=== PATIENT | female | born 1980 | race African-American/Black ===

== ENCOUNTER → 2016-11-28 03:04 | Emergency (ER) | payer OTHER ==
[2015-08-21 23:30] VITALS: BP 149/80
== END | disposition left against medical advice (07) ==
LOC: ER 03:04
DX: J02.9 Acute pharyngitis, unspecified (principal); Z53.21 Procedure and treatment not carried out due to patient leaving prior to being seen by health care provider

== ENCOUNTER 2016-12-10 18:12 | Emergency (ER) | payer OTHER ==
[~2016-12-10] VITALS: Ht 160 cm; Wt 68.0 kg
[2016-12-10 18:36] VITALS: BP 134/85
[2016-12-10] MEDS ORDERED: IV NORMAL SALINE 1000ML BAG 1,000 ML IV ONE (19:00)
--- NOTE | 2016-12-10 20:51 | PHYS DOC ---
Past Medical History Past Medical History: Asthma, Other Additional Past Medical Histor: drug abuse(PCP) Past Surgical History: Alcohol Use: Rarely Drug Use: Phencyclidine Social History Narrative: last "smoked PCP today" Adult General Chief Complaint Chief Complaint: PSYCH EVALUATION [facility] HPI Patient is a 36 year old female presenting to the emergency department for evaluation of multiple complaints including doing PCP not feeling well, she wants me to sign her disability paperwork and she wants to harm herself as it is stressful taking care of her mother at home. Patient says she has never tried herself before in the past she has no plan on how she would hurt herself currently. He is denying any specific medical complaints including pain fevers shortness of breath. Patient is refusing to give urine or blood work but wants to have a psych screening. Review of Systems Review of Systems Constitutional: Denies fever or chills [] Respiratory: Denies cough or shortness of breath [] Cardiovascular: No additional information not addressed in HPI [] GI: Denies abdominal pain, nausea, vomiting, bloody stools or diarrhea [] Neurologic: Denies headache, focal weakness or sensory changes [] Current Medications Current Medications Current Medications Medications (Trade) Dose Ordered Sig/Sixto Start Time Stop Time Status Last Admin Dose Admin Sodium Chloride 1,000 ml @ 1,000 mls/hr 1X ONCE 12/10/16 19:00 12/10/16 19:59 CA Allergies Allergies Allergies Coded Allergies Type Severity Reaction Last Updated Verified No Known Drug Allergies 12/10/16 No Physical Exam Physical Exam Constitutional: Well developed, well nourished, no acute distress, non-toxic appearance. [] Cardiovascular:Heart rate regular rhythm, no murmur [] Lungs & Thorax: Bilateral breath sounds clear to auscultation [] Abdomen: Bowel sounds normal, soft, no tenderness, no masses, no pulsatile masses. [] Skin: Warm, dry, no erythema, no rash. [] Back: No tenderness, no CVA tenderness. [] Extremities: No tenderness, no cyanosis, no clubbing, ROM intact, no edema. [] Neurologic: Alert and oriented X 3, normal motor function, normal sensory function, no focal deficits noted. [] Psychologic: Affect normal, judgement normal, mood normal. [] Current Patient Data Vital Signs Vital Signs Date Time Temp Pulse Resp B/P (MAP) Pulse Ox O2 Delivery O2 Flow Rate FiO2 12/10/16 18:36 98.7 106 20 134/85 (101) 97 Room Air 98.7 EKG EKG [] Radiology/Procedures Radiology/Procedures [] Course & Med Decision Making Course & Med Decision Making PACT team saw the patient and screened her from a psychiatric standpoint and she is cleared. Medically cleared from my standpoint so will discharged in stable condition. Patient did not want to wait for discharge instructions and walked out of the emergency department under her own power. Dragon Disclaimer Dragon Disclaimer This electronic medical record was generated, in whole or in part, using a voice recognition dictation system. Departure Departure Impression: Primary Impression: Suicidal ideations Additional Impression: Drug abuse Disposition: 01 HOME, SELF-CARE Condition: GOOD Referrals: ROLAND ANTON (PCP) Problem Qualifiers LAYNE CRESPO DO Dec 10, 2016 20:51
== END 2016-12-10 20:40 | disposition home or self-care (01) ==
LOC: ER 18:12
DX: R45.851 Suicidal ideations (principal); F16.10 Hallucinogen abuse, uncomplicated; J45.909 Unspecified asthma, uncomplicated
CPT/HCPCS: 99284

== ENCOUNTER 2017-02-09 17:30 | Emergency (ER) | payer OTHER ==
[~2017-02-09] VITALS: Ht 160 cm; Wt 75.9 kg
[2017-02-09 17:43] VITALS: BP 158/62
--- NOTE | 2017-02-09 18:04 | PHYS DOC ---
Past Medical History Past Medical History: Asthma, Other Additional Past Medical Histor: drug abuse(PCP) Past Surgical History: Alcohol Use: None Additional Information: DENIES ALCOHOL 02/09 Drug Use: None Social History Narrative: DENIES DRUG USE 02/09 Adult General Chief Complaint Chief Complaint: Congestion HPI HPI Patient is a 36 year old female presents to the emergency department stating that she's had a nonproductive cough for the last 2 weeks. Patient states that she has had a sore throat with the cough. She does state she has a history of asthma and has used her albuterol inhaler with minimal relief. She states that she does have some chest discomfort with coughing. Patient denies fever, chills she does state she has night sweats. She does have a history of smoking. Review of Systems Review of Systems Constitutional: Denies fever or chills [] Eyes: Denies change in visual acuity, redness, or eye pain [] HENT: Denies nasal congestion or sore throat [] Respiratory: cough denies shortness of breath [] Cardiovascular: No additional information not addressed in HPI [] GI: Denies abdominal pain, nausea, vomiting, bloody stools or diarrhea [] : Denies dysuria or hematuria [] Musculoskeletal: Denies back pain or joint pain [] Integument: Denies rash or skin lesions [] Neurologic: Denies headache, focal weakness or sensory changes [] Endocrine: Denies polyuria or polydipsia [] Current Medications Current Medications Current Medications Medications (Trade) Dose Ordered Sig/[facility] Start Time Stop Time Status Last Admin Dose Admin Albuterol/ Ipratropium (Duoneb) 3 ml 1X ONCE 02/09/17 18:15 02/09/17 18:16 DC 02/09/17 18:20 3 ML Prednisone (Prednisone) 40 mg 1X ONCE 02/09/17 18:15 02/09/17 18:16 DC 02/09/17 18:09 40 MG Allergies Allergies Allergies Coded Allergies Type Severity Reaction Last Updated Verified No Known Drug Allergies 12/10/16 No Physical Exam Physical Exam Constitutional: Well developed, well nourished, no acute distress, non-toxic appearance. [] HENT: Normocephalic, atraumatic, bilateral external ears normal, oropharynx moist, no oral exudates, nose normal. Bilateral tympanic membranes appear to be normal. Throat without redness no erythematous no exudate noted. Eyes: PERRLA, EOMI, conjunctiva normal, no discharge. [] Neck: Normal range of motion, no tenderness, supple, no stridor. [] Cardiovascular:Heart rate regular rhythm, no murmur [] Lungs & Thorax: Bilateral breath sounds clear to auscultation. Patient was noted to have a nonproductive cough. Back: No tenderness Extremities: No tenderness, no cyanosis, no clubbing, ROM intact, no edema. [] Neurologic: Alert and oriented X 3, normal motor function, normal sensory function, no focal deficits noted. [] Psychologic: Affect normal, judgement normal, mood normal. [] Current Patient Data Vital Signs Vital Signs Date Time Temp Pulse Resp B/P (MAP) Pulse Ox O2 Delivery O2 Flow Rate FiO2 02/09/17 18:23 97 Room Air 02/09/17 17:43 98.6 108 18 98.6 EKG EKG [] Radiology/Procedures Radiology/Procedures [] Course & Med Decision Making Course & Med Decision Making Pertinent Labs and Imaging studies reviewed. (See chart for details) Patient was provided with a DuoNeb treatment here in the emergency department as well as prednisone. Patient states she is feeling much better the treatment. She'll be discharged home with prednisone with recommendations to use her albuterol at home as needed. She'll be provided with Zithromax. Patient was provided with discharge instructions, treatment regimens and follow-up recommendations. Patient agrees with the treatment plan at this time. Patient was provided with recommendations to follow-up with her primary care physician in the next week. All questions and concerns were answered patient's bedside. [] Dragon Disclaimer Dragon Disclaimer This electronic medical record was generated, in whole or in part, using a voice recognition dictation system. Departure Departure Impression: Primary Impression: Bronchitis Disposition: 01 HOME, SELF-CARE Condition: STABLE Referrals: ROLAND ANTON (PCP) Patient Instructions: Bronchitis, [id number] Additional Instructions: Activity as tolerated. Medications as prescribed. Continue to use your albuterol inhaler as needed. Stop smoking. Follow-up primary care physician in the next week. Return back to emergency prior signs symptoms of become worse. Scripts Azithromycin (ZITHROMAX) 250 Mg Tablet 250 MG PO DAILY for ANTI-BIOTIC, #6 TAB 0 Refills Take 2 tablets today then 1 tablet daily until gone Prov: SYLVESTER LIGHT APRN 02/09/17 Prednisone (PREDNISONE) 20 Mg Tablet 40 MG PO DAILY, #14 TAB Prov: SYLVESTER LIGHT APRN 02/09/17 SYLVESTER LIGHT APRN Feb 09, 2017 18:04
[2017-02-09] MEDS ORDERED: predniSONE 20 MG TABLET PO ONE (18:15)
[2017-02-09] MEDS ORDERED: IPRATRPIUM/ALBUTEROL 0.5/2.5MG 3 ML NEBU. NEB ONE (18:15)
[2017-02-09] MEDS ORDERED: AZIT250T PO (18:39)
[2017-02-09] MEDS ORDERED: PRED20TA PO (18:39)
== END 2017-02-09 18:44 | disposition home or self-care (01) ==
LOC: ER 17:30
DX: J40 Bronchitis, not specified as acute or chronic (principal); Z87.891 Personal history of nicotine dependence; J45.909 Unspecified asthma, uncomplicated; F16.10 Hallucinogen abuse, uncomplicated
CPT/HCPCS: 94250; 94640; 99283; J7512; J7620

== ENCOUNTER 2018-03-06 12:27 | Emergency (ER) | payer OTHER ==
[~2018-03-06] VITALS: Ht 160 cm; Wt 91.2 kg
[~2018-03-06 12:27] MED LIST: AZIT250T PO; PRED20TA PO
--- NOTE | 2018-03-06 12:49 | PHYS DOC ---
Past Medical History Past Medical History: Asthma, Other Additional Past Medical Histor: drug abuse(PCP) Past Surgical History: Alcohol Use: None Drug Use: None Adult General Chief Complaint Chief Complaint: COUGH HPI HPI Patient is a 37 year old female who presented to ER today for evaluation of productive cough for the last 2 weeks. Patient denies any chest pain, no fever. Patient is a smoker. Patient denies any abdominal pain, no nausea vomiting. She denies any trouble breathing, no recent travel or operation. Review of Systems Review of Systems Constitutional: Denies fever or chills [] Eyes: Denies change in visual acuity, redness, or eye pain [] HENT: Denies nasal congestion or sore throat [] Respiratory: Positive for cough, NO Shortness of breath [] Cardiovascular: No additional information not addressed in HPI [] GI: Denies abdominal pain, nausea, vomiting, bloody stools or diarrhea [] : Denies dysuria or hematuria [] Musculoskeletal: Denies back pain or joint pain [] Integument: Denies rash or skin lesions [] Neurologic: Denies headache, focal weakness or sensory changes [] Endocrine: Denies polyuria or polydipsia [] All other systems were reviewed and found to be within normal limits, except as documented in this note. Allergies Allergies Allergies Coded Allergies Type Severity Reaction Last Updated Verified No Known Drug Allergies 12/10/16 No Physical Exam Physical Exam Constitutional: Well developed, well nourished, no acute distress, non-toxic appearance. [] HENT: Normocephalic, atraumatic, bilateral external ears normal, oropharynx moist, no oral exudates, nose normal. [] Eyes: PERRLA, EOMI, conjunctiva normal, no discharge. [] Neck: Normal range of motion, no tenderness, supple, no stridor. [] Cardiovascular:Heart rate regular rhythm, no murmur [] Lungs & Thorax: Bilateral breath sounds clear to auscultation [] Abdomen: Bowel sounds normal, soft, no tenderness, no masses, no pulsatile masses. [] Skin: Warm, dry, no erythema, no rash. [] Back: No tenderness, no CVA tenderness. [] Extremities: No tenderness, no cyanosis, no clubbing, ROM intact, no edema. [] Neurologic: Alert and oriented X 3, normal motor function, normal sensory function, no focal deficits noted. [] Psychologic: Affect normal, judgement normal, mood normal. [] Current Patient Data Vital Signs Vital Signs Date Time Temp Pulse Resp B/P (MAP) Pulse Ox O2 Delivery O2 Flow Rate FiO2 03/06/18 14:35 74 16 120/73 (89) 97 Room Air 03/06/18 12:35 99.3 99.3 EKG EKG [] Radiology/Procedures Radiology/Procedures [][facility] [address] [place] [address] IMAGING REPORT Signed PATIENT: JOLYNN WINSTON ACCOUNT: [id number] : 1980 LOCATION: ER AGE: 37 SEX: F EXAM STATUS: REG ER ORD. PHYSICIAN: LISA SANDERSON DO REASON: COUGH FOR 2 WEEKS PROCEDURE: CHEST PA & LATERAL EXAM: CHEST PA LATERAL DATE: 03/06/2018 12:45 PM INDICATION: cough x 2 weeks COMPARISON: No Prior FINDINGS: The heart is not enlarged. Mediastinal and hilar contours are normal. No focal parenchymal airspace opacity. No pleural effusion or pneumothorax. IMPRESSION: 1. No radiographic evidence for acute cardiopulmonary process. Electronically signed by: Obi De Guzman MD (03/06/2018 1:29 PM) [facility] DICTATED and SIGNED BY: OBI DE GUZMAN MD DATE: 03/06/18 1328 Impressions: Acute bronchitis Course & Med Decision Making Course & Med Decision Making Pertinent Labs and Imaging studies reviewed. (See chart for details) WILL DISCHARGE HOME WITH ANTIBIOTIC, COUGH MEDICATION, PREDNISONE. Dragon Disclaimer Dragon Disclaimer This electronic medical record was generated, in whole or in part, using a voice recognition dictation system. Departure Departure Impression: Primary Impression: Acute bronchitis Disposition: 01 HOME, SELF-CARE Condition: STABLE Referrals: ROLAND ANTON (PCP) FOLLOW UP WITH PCP NEXT WEEK FOR REEVALUATION Patient Instructions: Acute Bronchitis Scripts Hydrocodone/Chlorphen P-Stirex (Tussionex Pennkinetic Susp) 115 Ml Melida.er.12h 5 ML PO BID PRN for COUGH, #120 ML Prov: LISA SANDERSON DO 03/06/18 Prednisone (PREDNISONE) 20 Mg Tablet 1 TAB PO DAILY for 7 Days, #7 TAB Prov: LISA SANDERSON DO 03/06/18 Azithromycin (ZITHROMAX) 250 Mg Tablet 1 PKG PO UD, #1 PKG Prov: LISA SANDERSON DO 03/06/18 LISA SANDERSON DO Mar 06, 2018 12:49
--- NOTE | 2018-03-06 13:32 | RAD ---
EXAM: CHEST PA LATERAL DATE: 03/06/2018 12:45 PM INDICATION: cough x 2 weeks COMPARISON: No Prior FINDINGS: The heart is not enlarged. Mediastinal and hilar contours are normal. No focal parenchymal airspace opacity. No pleural effusion or pneumothorax. IMPRESSION: 1. No radiographic evidence for acute cardiopulmonary process. Electronically signed by: Obi Chacko MD (03/06/2018 1:29 PM) [facility]
[2018-03-06] MEDS ORDERED: AZIT250T PO (14:34)
[2018-03-06] MEDS ORDERED: HYDR115S2 PO (14:34)
[2018-03-06] MEDS ORDERED: PRED20TA PO (14:34)
[2018-03-06 14:35] VITALS: BP 120/73
== END 2018-03-06 14:54 | disposition home or self-care (01) ==
LOC: ER 12:27
DX: J20.9 Acute bronchitis, unspecified (principal); J45.909 Unspecified asthma, uncomplicated; F17.200 Nicotine dependence, unspecified, uncomplicated
CPT/HCPCS: 71046; 99284

== ENCOUNTER 2018-03-28 15:34 | Emergency (ER) | payer OTHER ==
[~2018-03-28 15:34] MED LIST changes: +HYDR115S2 PO
== END 2018-03-28 15:35 | disposition left against medical advice (07) ==
LOC: ER 15:34
DX: Z53.21 Procedure and treatment not carried out due to patient leaving prior to being seen by health care provider (principal); H92.09 Otalgia, unspecified ear

== ENCOUNTER 2018-07-18 11:07 | Emergency (ER) | payer MEDICAID, OTHER ==
[~2018-07-18] VITALS: Ht 157.5 cm; Wt 77.1 kg
[2018-07-18 11:08] VITALS: BP 142/81
--- NOTE | 2018-07-18 11:34 | PHYS DOC ---
Past Medical History Past Medical History: Asthma, Depression, GERD, Other Additional Past Medical Histor: drug abuse(PCP) Past Surgical History: Smoking: Cigarettes, Less than 1pk/day Additional Information: 1 CIGARETTE A DAY Alcohol Use: None Drug Use: None Adult General Chief Complaint Chief Complaint: COUGH HPI HPI Patient is a 37 year old AA female who presents to the ER with complaints of a productive cough with white sputum for over a week. She denies any fever, ear pain, nausea, vomiting, or abdominal pain. States that she has had a few loose stools recently. Pt states that she has had increased nasal congestion with post nasal drainage and a scratchy throat. Pt reports a history of asthma and has been using her MDI as needed for wheezing. She denies any shortness of breath at this time, complains of chest tightness and painful coughing at this time. She denies chest pain unless she is coughing. Review of Systems Review of Systems Constitutional: Denies fever or chills [] Eyes: Denies change in visual acuity, redness, or eye pain [] HENT: See HPI Respiratory: Denies shortness of breath; see HPI Cardiovascular: No additional information not addressed in HPI [] GI: Denies abdominal pain, nausea, vomiting, or diarrhea [] Musculoskeletal: Denies back pain or joint pain [] Integument: Denies rash or skin lesions [] Neurologic: Denies headache, focal weakness or sensory changes [] Complete systems were reviewed and found to be within normal limits, except as documented in this note. Allergies Allergies Allergies Coded Allergies Type Severity Reaction Last Updated Verified No Known Drug Allergies 12/10/16 No Physical Exam Physical Exam Constitutional: Well developed, well nourished, no acute distress, non-toxic appearance, obese [] HENT: Normocephalic, atraumatic, bilateral external ears normal, bilateral TMs normal, post nasal drainage present, oropharynx moist, no oral exudates, nose normal. [] Eyes: conjunctiva normal, no discharge. [] Neck: Normal range of motion, no tenderness, supple, no stridor. [] Cardiovascular:Heart rate regular rhythm, no murmur [] Lungs & Thorax: Bilateral breath sounds clear to auscultation [] Skin: Warm, dry, no erythema, no rash. [] Extremities: No tenderness, no cyanosis, no clubbing, ROM intact, no edema. [] Neurologic: Alert and oriented X 3, normal motor function, normal sensory function, no focal deficits noted. [] Psychologic: Affect normal, judgement normal, mood normal. [] Current Patient Data Vital Signs Vital Signs Date Time Temp Pulse Resp B/P (MAP) Pulse Ox O2 Delivery O2 Flow Rate FiO2 07/18/18 11:08 98.8 99 20 142/81 (101) 95 Room Air 98.8 EKG EKG [] Radiology/Procedures Radiology/Procedures [] Course & Med Decision Making Course & Med Decision Making Pertinent Labs and Imaging studies reviewed. (See chart for details) Dx: URI, bronchitis Prescriptions for Augmentin and tessalon perrles. Continue using MDI prn, pt denies need for refill. Avoid airway irritants, increase clear fluids, stop smoking. Patient verbalized an understanding of home care, medications, follow-up, and return to ED instructions and was in agreement with the plan of care. [] Dragon Disclaimer Dragon Disclaimer This electronic medical record was generated, in whole or in part, using a voice recognition dictation system. Departure Departure Impression: Primary Impression: Bronchitis Additional Impression: URI (upper respiratory infection) Disposition: HOME, SELF-CARE Condition: STABLE Referrals: UNKNOWN PCP NAME (PCP) Patient Instructions: Upper Respiratory Infection, Adult, [id number] Additional Instructions: Fill prescription(s) and use as directed. Recommend the use of a Cool mist humidifier in room at bedtime. Tylenol or ibuprofen prn pain/fever. Increase clear fluids. Avoid triggers such as smoke, fragrance, dust, and pollen. Follow-up with your primary care doctor in 1-2 days if symptoms persist, return to the ER if symptoms worsen. Scripts Benzonatate (TESSALON PERLE) 100 Mg Capsule 1 CAP PO TID PRN for COUGH, #21 CAP 0 Refills Prov: JEEVAN DEE SENIOR CARE ASSISTANT 07/18/18 Amoxicillin/Potassium Clav (AUGMENTIN 875-125 TABLET) 1 Each Tablet 1 TAB PO BID, #14 TAB 0 Refills Prov: JEEVAN DEE SENIOR CARE ASSISTANT 07/18/18 Problem Qualifiers Additional Impression: URI (upper respiratory infection) URI type: unspecified URI Qualified Codes: J06.9 - Acute upper respiratory infection, unspecified JEEVAN DEE SENIOR CARE ASSISTANT Jul 18, 2018 11:34
[2018-07-18] MEDS ORDERED: BENZ100C PO (11:39)
[2018-07-18] MEDS ORDERED: AMOX1TAB61 PO (11:39)
== END 2018-07-18 11:40 | disposition home or self-care (01) ==
LOC: ER 11:07
DX: J40 Bronchitis, not specified as acute or chronic (principal); J06.9 Acute upper respiratory infection, unspecified; K21.9 Gastro-esophageal reflux disease without esophagitis; F17.210 Nicotine dependence, cigarettes, uncomplicated
CPT/HCPCS: 99283

== ENCOUNTER 2018-09-16 14:04 | Emergency (ER) | payer OTHER ==
[~2018-09-16] VITALS: Ht 157.5 cm; Wt 85.7 kg
[~2018-09-16 14:04] MED LIST changes: +AMOX1TAB61 PO; +BENZ100C PO
[2018-09-16 14:14] VITALS: BP 167/95
[2018-09-16] MEDS ORDERED: predniSONE 10 MG TABLET PO ONE (14:30)
[2018-09-16] MEDS ORDERED: IPRATRPIUM/ALBUTEROL 0.5/2.5MG 3 ML NEBU. NEB ONE (14:30)
[2018-09-16] MEDS ORDERED: ALBU2.5V8 INH (15:45)
[2018-09-16] MEDS ORDERED: PRED50TA PO (15:45)
--- NOTE | 2018-09-16 15:46 | PHYS DOC ---
Past Medical History Past Medical History: Asthma, Depression, GERD, Other Additional Past Medical Histor: drug abuse(PCP) Past Surgical History: Alcohol Use: None Drug Use: None Adult General Chief Complaint Chief Complaint: ASTHMA HPI HPI Patient is a 38 year old female who presents with an exacerbation of her asthma. The patient states that she has been having worsening symptoms over the past 2 weeks. She does have an albuterol inhaler at home but does not have nebulizer machines. She has not taken prednisone for this exacerbation. She is having active wheezing. She denies shortness of air, diaphoresis or fever. She denies body aches. Review of Systems Review of Systems Constitutional: Denies fever or chills [] Eyes: Denies change in visual acuity, redness, or eye pain [] HENT: Denies nasal congestion or sore throat [] Respiratory: See history of present illness Cardiovascular: No additional information not addressed in HPI [] GI: Denies abdominal pain, nausea, vomiting, bloody stools or diarrhea [] : Denies dysuria or hematuria [] Musculoskeletal: Denies back pain or joint pain [] Integument: Denies rash or skin lesions [] Neurologic: Denies headache, focal weakness or sensory changes [] Endocrine: Denies polyuria or polydipsia [] All other systems were reviewed and found to be within normal limits, except as documented in this note. Current Medications Current Medications Current Medications Medications (Trade) Dose Ordered Sig/Sixto Start Time Stop Time Status Last Admin Dose Admin Albuterol/ Ipratropium (Duoneb) 3 ml 1X ONCE 09/16/18 14:30 09/16/18 14:31 DC 09/16/18 14:22 3 ML Prednisone (Prednisone) 50 mg 1X ONCE 09/16/18 14:30 09/16/18 14:31 DC 09/16/18 14:26 50 MG Allergies Allergies Allergies Coded Allergies Type Severity Reaction Last Updated Verified No Known Drug Allergies 12/10/16 No Physical Exam Physical Exam Constitutional: Well developed, well nourished, no acute distress, non-toxic appearance. [] HENT: Normocephalic, atraumatic, bilateral external ears normal, oropharynx moist, no oral exudates, nose normal. [] Eyes: PERRLA, EOMI, conjunctiva normal, no discharge. [] Neck: Normal range of motion, no tenderness, supple, no stridor. [] Cardiovascular:Heart rate regular rhythm, no murmur [] Lungs & Thorax: Bilateral breath sounds have wheezing noted in all ferrera Abdomen: Bowel sounds normal, soft, no tenderness, no masses, no pulsatile masses. [] Skin: Warm, dry, no erythema, no rash. [] Back: No tenderness, no CVA tenderness. [] Extremities: No tenderness, no cyanosis, no clubbing, ROM intact, no edema. [] Neurologic: Alert and oriented X 3, normal motor function, normal sensory function, no focal deficits noted. [] Psychologic: Affect normal, judgement normal, mood normal. [] Current Patient Data Vital Signs Vital Signs Date Time Temp Pulse Resp B/P (MAP) Pulse Ox O2 Delivery O2 Flow Rate FiO2 09/16/18 14:22 100 Room Air 09/16/18 14:14 98.9 105 28 167/95 (119) 98.9 EKG EKG [] Radiology/Procedures Radiology/Procedures [] Course & Med Decision Making Course & Med Decision Making Pertinent Labs and Imaging studies reviewed. (See chart for details) []The patient received prednisone and a DuoNeb treatment in the emergency department. She states that this is resolving her symptoms. Dragon Disclaimer Imonomi Disclaimer This electronic medical record was generated, in whole or in part, using a voice recognition dictation system. Departure Departure Impression: Primary Impression: Asthma exacerbation Disposition: 01 HOME, SELF-CARE Condition: STABLE Referrals: UNKNOWN PCP NAME (PCP) Patient Instructions: Asthma, Adult Additional Instructions: Take medications as directed. Follow-up with your primary care provider in 2 days if not improving or return to the emergency department if worsening. Make sure you have food on your stomach when taking the prednisone. Scripts Albuterol Sulfate (Proair Hfa) 8.5 Gm Hfa.aer.ad 1 PUFF INH PRN Q6HRS PRN for SHORTNESS OF BREATH, #1 INHALER 3 Refills Prov: SHERLYN HER APRN 09/16/18 Prednisone (PREDNISONE) 50 Mg Tablet 1 TAB PO DAILY for asthma, #5 TAB Prov: SHERLYN HER APRN 09/16/18 SHERLYN HER APRN Sep 16, 2018 15:46
== END 2018-09-16 15:58 | disposition home or self-care (01) ==
LOC: ER 14:04
DX: J45.901 Unspecified asthma with (acute) exacerbation (principal); K21.9 Gastro-esophageal reflux disease without esophagitis; F32.9 Major depressive disorder, single episode, unspecified
CPT/HCPCS: 94640; 99283; J7512; J7620

== ENCOUNTER 2020-02-28 21:36 | Emergency (ER) | payer MEDICAID, OTHER ==
[~2020-02-28] VITALS: Ht 165.1 cm; Wt 100.0 kg
[2020-02-28 21:36] VITALS: BP 171/81
[~2020-02-28 21:36] MED LIST changes: +ALBU2.5V8 INH; +PRED50TA PO
--- NOTE | 2020-02-28 21:49 | PHYS DOC ---
Past Medical History Past Medical History: Asthma, Depression, GERD, Other Additional Past Medical Histor: drug abuse(PCP) Past Surgical History: Smoking Status: Current Every Day Smoker Alcohol Use: None Drug Use: None General Adult EDM: Chief Complaint: DRUG ABUSE HPI: HPI: Patient is a 39 year old [f__sex] who presents with [] Review of Systems: Review of Systems: Constitutional: Denies fever or chills. [] Eyes: Denies change in visual acuity. [] HENT: Denies nasal congestion or sore throat. [] Respiratory: Denies cough or shortness of breath. [] Cardiovascular: Denies chest pain or edema. [] GI: Denies abdominal pain, nausea, vomiting, bloody stools or diarrhea. [] : Denies dysuria. [] Musculoskeletal: Denies back pain or joint pain. [] Integument: Denies rash. [] Neurologic: Denies headache, focal weakness or sensory changes. [] Endocrine: Denies polyuria or polydipsia. [] Lymphatic: Denies swollen glands. [] Psychiatric: Denies depression or anxiety. [] Heart Score: Risk Factors: Risk Factors: DM, Current or recent (<one month) smoker, HTN, HLP, family history of CAD, obesity. Risk Scores: Score 0 - 3: 2.5% MACE over next 6 weeks - Discharge Home Score 4 - 6: 20.3% MACE over next 6 weeks - Admit for Clinical Observation Score 7 - 10: 72.7% MACE over next 6 weeks - Early Invasive Strategies Allergies: Allergies: Allergies Coded Allergies Type Severity Reaction Last Updated Verified No Known Drug Allergies 12/10/16 No Physical Exam: PE: Constitutional: Well developed, well nourished, no acute distress, non-toxic appearance. [] HENT: Normocephalic, atraumatic, bilateral external ears normal, oropharynx moist, no oral exudates, nose normal. [] Eyes: PERRLA, EOMI, conjunctiva normal, no discharge. [] Neck: Normal range of motion, no tenderness, supple, no stridor. [] Cardiovascular:Heart rate regular rhythm, no murmur [] Lungs & Thorax: Bilateral breath sounds clear to auscultation [] Abdomen: Bowel sounds normal, soft, no tenderness, no masses, no pulsatile masses. [] Skin: Warm, dry, no erythema, no rash. [] Back: No tenderness, no CVA tenderness. [] Extremities: No tenderness, no cyanosis, no clubbing, ROM intact, no edema. [] Neurologic: Alert and oriented X 3, normal motor function, normal sensory function, no focal deficits noted. [] Psychologic: Affect normal, judgement normal, mood normal. [] EKG: EKG: [] Radiology/Procedures: Radiology/Procedures: [] Course & Med Decision Making: Course & Med Decision Making Pertinent Labs and Imaging studies reviewed. (See chart for details) [] Dragon Disclaimer: Dragon Disclaimer: This electronic medical record was generated, in whole or in part, using a voice recognition dictation system. Departure Departure Impression: Primary Impression: Altered mental status Qualified Codes: R41.82 - Altered mental status, unspecified Additional Impression: Left against medical advice Disposition: 07 AGAINST MEDICAL ADVICE Condition: GUARDED Referrals: UNKNOWN PCP NAME (PCP) Patient Instructions: Alcohol and Drug Addiction, Finding Treatment, Discharge Against Medical Advice Justicifation of Admission Dx: Justifications for Admission: Justification of Admission Dx: N/A MAI MASTERS DO Feb 28, 2020 21:49
== END 2020-02-28 21:46 | disposition left against medical advice (07) ==
LOC: ER 21:36
DX: R41.82 Altered mental status, unspecified (principal); K21.9 Gastro-esophageal reflux disease without esophagitis; J45.909 Unspecified asthma, uncomplicated; F32.9 Major depressive disorder, single episode, unspecified; F17.200 Nicotine dependence, unspecified, uncomplicated
CPT/HCPCS: 99283

== ENCOUNTER 2020-03-31 14:37 | Emergency (ER) | payer MEDICAID ==
[~2020-03-31] VITALS: Ht 157.5 cm; Wt 77.2 kg
--- NOTE | 2020-03-31 15:08 | PHYS DOC ---
Past Medical History Past Medical History: Asthma, Depression, GERD, Other (TYLER GRAY DO) Past Surgical History: (TYLER GRAY DO) Smoking Status: Current Every Day Smoker Alcohol Use: None Drug Use: Phencyclidine (TYLER GRAY DO) General Adult EDM: Chief Complaint: ASTHMA HPI: HPI: History obtained from the patient. Patient is a 39-year-old female with history of asthma who presents with chief complaint of shortness of breath. She is noted progressive shortness of breath over the past 6 days. States she has been using her inhaler at home every 2-3 hours with minimal relief. Denies any recent steroids or antibiotics. Denies any previous history of hospitalization due to respiratory issues. Does follow with a electrical manufacturing technician at [facility]. She denies any chest pain. She denies any vomiting. Denies syncope. States this feels similar to previous asthma flares. States typical triggers for include environmental allergens. No other complaints. (TYLER GRAY DO) Review of Systems: Review of Systems: Constitutional: Denies fever or chills. [] Eyes: Denies change in visual acuity. [] HENT: Denies nasal congestion or sore throat. [] Respiratory: Shortness of breath and wheezing Cardiovascular: Denies chest pain or edema. [] GI: Denies abdominal pain, nausea, vomiting, bloody stools or diarrhea. [] : Denies dysuria. [] Musculoskeletal: Denies back pain or joint pain. [] Integument: Denies rash. [] Neurologic: Denies headache, focal weakness or sensory changes. [] Endocrine: Denies polyuria or polydipsia. [] Lymphatic: Denies swollen glands. [] Psychiatric: Denies depression or anxiety. [] (TYLER GRAY DO) Heart Score: Risk Factors: Risk Factors: DM, Current or recent (<one month) smoker, HTN, HLP, family history of CAD, obesity. Risk Scores: Score 0 - 3: 2.5% MACE over next 6 weeks - Discharge Home Score 4 - 6: 20.3% MACE over next 6 weeks - Admit for Clinical Observation Score 7 - 10: 72.7% MACE over next 6 weeks - Early Invasive Strategies (TYLER GRAY DO) Current Medications: Current Medications Medications (Trade) Dose Ordered Sig/Sixto Start Time Stop Time Status Last Admin Dose Admin Albuterol/ Ipratropium (Duoneb) 9 ml 1X ONCE 03/31/20 15:15 03/31/20 15:16 UNV Magnesium Sulfate 50 ml @ 50 mls/hr 1X ONCE 03/31/20 15:15 03/31/20 16:14 UNV Methylprednisolone Sodium Succinate (SOLU-Medrol 125MG VIAL) 125 mg 1X ONCE 03/31/20 15:15 03/31/20 15:16 UNV Sodium Chloride 1,000 ml @ 1,000 mls/hr 1X ONCE 03/31/20 15:15 03/31/20 16:14 (TYLER GRAY DO) Allergies: Allergies: Allergies Coded Allergies Type Severity Reaction Last Updated Verified No Known Drug Allergies 12/10/16 No (TYLER GRAY DO) Physical Exam: PE: Constitutional: Well developed, well nourished, no acute distress, non-toxic appearance. [] HENT: Normocephalic, atraumatic, bilateral external ears normal, oropharynx moist, no oral exudates, nose normal. [] Eyes: PERRLA, EOMI, conjunctiva normal, no discharge. [] Neck: Normal range of motion, no tenderness, supple, no stridor. [] Cardiovascular:Heart rate regular rhythm, no murmur [] Lungs & Thorax: Conversationally dyspneic. Inspiratory expiratory wheezes noted in all lung ferrera. Mildly tachypneic. Appropriate oxygenation. Abdomen: soft, no tenderness, no masses, no pulsatile masses. [] Skin: Warm, dry, no erythema, no rash. [] Back: No tenderness, no CVA tenderness. [] Extremities: No tenderness, no cyanosis, no clubbing, ROM intact, no edema. [] Neurologic: Alert and oriented X 3, normal motor function, normal sensory function, no focal deficits noted. [] Psychologic: Affect normal, judgement normal, mood normal. [] (TYLER GRAY DO) EKG: EKG: [] (TYLER GRAY DO) Radiology/Procedures: Radiology/Procedures: [] (TYLER GRAY DO) Course & Med Decision Making: Course & Med Decision Making Pertinent Labs and Imaging studies reviewed. (See chart for details) [] Patient is a 39-year-old female who presents with chief complaint of shortness of breath secondary to asthma exacerbation. Initial vital signs notable for tachycardia. Patient does show signs of moderate respiratory distress. Tachypneic. Conversationally dyspneic. Inspiratory and expiratory wheezes noted throughout. Given her signs of respiratory distress 2g of magnesium over 20 minutes was administered. Additional fluids were given. 3 DuoNeb breathing treatments and 125 mg of IV Solu-Medrol were administered. Repeat examination patient states that she is not quite back to baseline. She does still have faint expiratory wheezes. Additional albuterol was given. I have signed out the patient's emergency department care to Dr. Danielson. We discussed the history, physical exam findings, completed and pending laboratory results and imaging studies. We have also discussed the current treatment plan and expected clinical course. Please refer to chart for the patient's remaining emergency department course, final disposition, and clinical impression(s). (TYLER GRAY DO) Course & Med Decision Making I received signout from Dr. Gray regarding Ms. Eaton. Patient is a 39-year-old with an asthma exacerbation. On my reassessment there is minimal if any wheezing patient feels much better. Patient states she feels like she is ready to go home. (KAYLYN DANIELSON MD) Dragon Disclaimer: Paige Disclaimer: This electronic medical record was generated, in whole or in part, using a voice recognition dictation system. (TYLER GRAY DO) Departure Departure Impression: Primary Impression: Acute asthma exacerbation Disposition: HOME, SELF-CARE Condition: STABLE Referrals: UNKNOWN PCP NAME (PCP) [facility] [address] [place] [address] [facility] [address] [place] [address] [facility] [address] [place] [address] [facility] [address] [place] [address] [facility] [address] [place] [address] [facility] [address] [place] [address] [facility] [address] [place] [address] Aug[facility] [address] [place] [address] [facility] [address] [place] [address] [facility] [address] [place] [address] pcp Patient Instructions: Asthma, Adult, [id number] Additional Instructions: EMERGENCY DEPARTMENT GENERAL DISCHARGE INSTRUCTIONS THANK YOU for coming to [facility] Emergency Department (ED) today and trusting us with your care. We trust that you had a positive experience in our Emergency Department. If you wish to speak to the department Management you can contact the emergency department manager at . YOUR FOLLOW UP INSTRUCTIONS ARE FOLLOWS: Do you have a private doctor? If you do not have a private doctor, please ask for a resource list of physicians or clinics that may be able to assist you with follow up care. The Emergency Physician has interpreted your x-rays. The X-ray specialist will also review them. If there is a change in the findings you will be notified in 48 hours when at all possible. A lab test or lab culture may have been done, your results will be reviewed and you will be notified if you need a change in treatment. ADDITIONAL INSTRUCTIONS AND INFORMATION Your care today has been supervised by a physician who is specially trained in emergency care. Many problems require more than one evaluation for a complete diagnosis and treatment. We recommend that you schedule your follow up appointment as recommended to ensure complete treatment of your illness or injury. If you are unable to obtain follow up care and continue to have a problem, or if your condition worsens we recommend that you return to the ED. We are not able to safely determine your condition over the phone nor are we able to give sound medical advice over the phone. For these safety reasons, if you call for medical advice we will ask you to come to the ED for further evaluation If you have any questions regarding these discharge instructions please call the ED at . SAFETY INFORMATION In the interest of safety, wellness, and injury prevention; we encourage you to wear your seatbelt, if you smoke; quit smoking, and we encourage your family to use protective helmet for bicycling and other sporting events that present an increased risk for head injury. IF YOUR SYMPTOMS WORSEN OR NEW SYMPTOMS DEVELOP, OR YOU HAVE CONCERNS ABOUT YOUR CONDITION; OR IF YOUR CONDITION WORSENS WHILE YOU ARE WAITING FOR YOUR FOLLOW UP APPOINTMENT; EITHER CONTACT YOUR PRIMARY CARE DOCTOR, THE PHYSICIAN WHOSE NAME AND NUMBER YOU WERE GIVEN, OR RETURN TO THE ED IMMEDIATELY. Scripts Prednisone (PREDNISONE) 20 Mg Tablet 3 TAB PO DAILY for 5 Days, #15 TAB Prov: KAYLYN DANIELSON MD 03/31/20 Albuterol Sulfate (PROAIR HFA INHALER) 8.5 Gm Hfa.aer.ad 2 PUFF IH PRN Q4-6HRS PRN for wheezing, #1 INHALER 0 Refills Prov: KAYLYN DANIELSON MD 03/31/20 TYLER GRAY DO Mar 31, 2020 15:08 KAYLYN DANIELSON MD Mar 31, 2020 19:00
[2020-03-31] MEDS ORDERED: IV NORMAL SALINE 1000ML BAG 1,000 ML IV ONE (15:15)
[2020-03-31] MEDS ORDERED: MAGNESIUM SULFATE 2GM 50 ML IV ONE (15:15)
[2020-03-31] MEDS ORDERED: methylPREDNISolone SOD SUCC PF 125 MG/2 ML VIAL. IV ONE (15:15)
[2020-03-31] MEDS ORDERED: IPRATRPIUM/ALBUTEROL 0.5/2.5MG 3 ML NEBU. NEB ONE (15:15)
[2020-03-31] MEDS ORDERED: ALBUTEROL SULFATE 2.5 MG/3 ML NEBU. NEB ONE (17:15)
[2020-03-31] MEDS ORDERED: PRED20TA PO (19:00)
[2020-03-31] MEDS ORDERED: ALBU2.5V8 IH (19:00)
[2020-03-31 19:03] VITALS: BP 146/77
== END 2020-03-31 19:15 | disposition home or self-care (01) ==
LOC: ER 14:37
DX: J45.901 Unspecified asthma with (acute) exacerbation (principal); R06.02 Shortness of breath; F32.9 Major depressive disorder, single episode, unspecified; K21.9 Gastro-esophageal reflux disease without esophagitis; F19.90 Other psychoactive substance use, unspecified, uncomplicated; Z98.890 Other specified postprocedural states
CPT/HCPCS: 81025; 94640; 96365; 96375; 99285; J2930; J3475; J7030; G0390; J7613